=== PATIENT | male | born 1975 | race Caucasian/White ===

== ENCOUNTER 2019-03-22 11:25 | Outpatient (CLI) | payer OTHER, BC ==
--- NOTE | 2019-03-22 11:43 | RAD ---
XR Chest Pa Lat STANDARD HISTORY: Shortness of breath and fatigue COMPARISON: 03/08/2011 FINDINGS: The heart size is normal. The lungs are well expanded without focal areas of consolidation, pneumothorax or pleural effusions. IMPRESSION: No radiographic evidence of acute cardiopulmonary process.
== END 2019-03-22 11:26 | disposition home or self-care (01) ==
LOC: SCSRAD 11:25
PROVIDERS: ATTEND Nurse Practitioner Family
DX: Z00.00 Encounter for general adult medical examination without abnormal findings (principal); R06.02 Shortness of breath; R53.83 Other fatigue
CPT/HCPCS: 36415; 71046; 80053; 80061; 82306; 82607; 82746; 84439; 84443; 84481; 85025; 86038; 86225; 86376; 86800; G0103

== ENCOUNTER 2019-05-11 08:47 | Outpatient (CLI) | payer BC, OTHER ==
--- NOTE | 2019-05-11 10:46 | CT ---
CT CHEST WITH AND WITHOUT CONTRAST: HISTORY: Shortness of breath. COMPARISON: Chest radiograph from 03/22/2019. FINDINGS: On the noncontrast portion of the examination, there is no intramural hematoma. No significant calci fications of the [place] coronary arteries. The lungs are clear. No pneumothorax. No effusion. No consolidation. No fibrosis. No bronchiectasis. No honeycombing. No subpleural articulation. The thyroid is unremarkable. No adenopathy. No pericardial effusion. The upper abdomen is unremark able. No thoracic spine compression deformity. No acute osseous abnormality. No evidence of fracture. IMPRESSION: Normal examination of the chest. POS: [facility]
== END 2019-05-11 08:48 | disposition home or self-care (01) ==
LOC: BICCT 08:47
PROVIDERS: ATTEND Nurse Practitioner Family
DX: E55.9 Vitamin D deficiency, unspecified (principal); I25.10 Atherosclerotic heart disease of native coronary artery without angina pectoris; R53.83 Other fatigue; R06.02 Shortness of breath
CPT/HCPCS: 71260

== ENCOUNTER 2019-05-28 15:00 | Outpatient (CLI) | payer OTHER, BC | END 2019-05-28 15:01 | disposition home or self-care (01) | LOC: SLEEPLAB 15:00 | PROVIDERS: ATTEND Nurse Practitioner Family | DX: G47.33 Obstructive sleep apnea (adult) (pediatric) (principal); R53.83 Other fatigue; K21.9 Gastro-esophageal reflux disease without esophagitis; F41.9 Anxiety disorder, unspecified; F32.9 Major depressive disorder, single episode, unspecified; G47.11 Idiopathic hypersomnia with long sleep time | CPT/HCPCS: 95806 ==

== ENCOUNTER 2021-01-29 13:28 | Outpatient (CLI) | payer OTHER | END 2021-01-29 13:29 | disposition home or self-care (01) | LOC: BICULT 13:28 | PROVIDERS: ATTEND Nurse Practitioner Family | DX: R39.89 Other symptoms and signs involving the genitourinary system (principal); R31.9 Hematuria, unspecified; R80.9 Proteinuria, unspecified | CPT/HCPCS: 76770 ==

== ENCOUNTER 2021-02-20 08:24 | Outpatient (CLI) | payer OTHER ==
[2021-02-20 10:26] LABS: Hemoglobin 14.8 g/dL (13.5-17.5); Mean Corpuscular HGB CONC 33.3 g/dL (32.0-36.0); Mean Corpuscular Hemoglobin 27.9 pg (27.0-33.0); Mean Platelet Volume 9.4 fl (7.4-10.4); Platelet Count 248 10x3/uL (150-450); RBC Distribution Width 11.9 % (11.5-14.5); White Blood Cell (WBC) Count 5.4 10x3/uL (3.5-10.5)
[2021-02-20 10:35] LABS: Anion Gap 13 mmol/L (10-20); BUN (Urea Nitrogen) 22 mg/dL (8.9-20.6); Calc. Creatinine Clearance 0 mL/min (70-130); Calcium 9.2 mg/dL (7.8-10.44); Carbon Dioxide 27 mmol/L (22-29); Chloride 105 mmol/L (98-107); Glucose 98 mg/dL (70-105); Potassium 4.8 mmol/L (3.5-5.1); Sodium 140 mmol/L (136-145)
[2021-02-20 10:44] LABS: PTT 30.5 sec (22.0-33.0); Prothrombin Time 10.7 sec (9.5-12.1)
[2021-02-20 18:34] LABS: SARS-CoV-2 PCR by NAA Not Detected (NotDetected)
== END 2021-02-20 08:25 | disposition home or self-care (01) ==
LOC: LABBT 08:24
PROVIDERS: ATTEND Urology
DX: Z01.812 Encounter for preprocedural laboratory examination (principal); N20.1 Calculus of ureter; Z20.822 Contact with and (suspected) exposure to COVID-19
CPT/HCPCS: 80048; 85027; 85610; 85730; 87635; 93005; 93010; U0003; U0005

== ENCOUNTER 2021-02-25 07:41 | Day surgery (SDC) | payer OTHER ==
[2021-02-24 11:46] VITALS: BMI 34.0
[2021-02-25] MEDS ORDERED: Levofloxacin 500 mg/D5W 100 ml Premix Bag ONE (08:51)
[2021-02-25] MEDS ORDERED: Midazolam HCl 2 mg/2 ml Vial ONE (10:35)
[2021-02-25] MEDS ORDERED: Fentanyl 100 MCG/2 ML VIAL ONE ×2 (10:35→12:26)
[2021-02-25] MEDS ORDERED: Iothalamate Meglumine 60% 50 ML VIAL FS ONE (10:38)
[2021-02-25] MEDS ORDERED: Rocuronium Bromide 10 MG/ML (10ML VIAL) ONE (10:53)
[2021-02-25] MEDS ORDERED: Glycopyrrolate 0.2 MG/ML 5 ML SYRINGE ONE (10:53)
[2021-02-25] MEDS ORDERED: Dexamethasone 20 MG/5 ML VIAL ONE (10:53)
[2021-02-25] MEDS ORDERED: diphenhydrAMINE 50 MG/ML VIAL ONE (10:53)
[2021-02-25] MEDS ORDERED: Ketorolac Tromethamine 30 MG/ML VIAL ONE (10:53)
[2021-02-25] MEDS ORDERED: PROPOFOL 200 MG/20 ML VIAL ONE (10:53)
[2021-02-25] MEDS ORDERED: Ondansetron PF 4 MG/2 ML Vial ONE (10:53)
[2021-02-25] MEDS ORDERED: Oxybutynin 5 MG TAB ONE (12:15)
[2021-02-25] MEDS ORDERED: Phenazopyridine HCl 100 MG TAB ONE ×2 (12:15→12:16)
[2021-03-03 20:08] LABS: CA Oxalate Dihydrate 30 % (.); CA Oxalate Monohydrate 70 % (.); Color Brown (.); Stone Weight 29 mg (.)
== END 2021-02-25 13:37 | disposition home or self-care (01) ==
LOC: SDC 07:41
PROVIDERS: ATTEND Urology
PROC: 0TC78ZZ Extirpation of Matter from Left Ureter, Via Natural or Artificial Opening Endoscopic (ICD-10-PCS; principal; 2021-02-25)
PROC: 0T778DZ Dilation of Left Ureter with Intraluminal Device, Via Natural or Artificial Opening Endoscopic (ICD-10-PCS; principal; 2021-02-25)
DX: N13.2 Hydronephrosis with renal and ureteral calculous obstruction (principal); R35.0 Frequency of micturition; I25.2 Old myocardial infarction; I25.10 Atherosclerotic heart disease of native coronary artery without angina pectoris; Z79.82 Long term (current) use of aspirin; Z79.899 Other long term (current) drug therapy; Z87.891 Personal history of nicotine dependence; Z88.5 Allergy status to narcotic agent
CPT/HCPCS: 74018; 74420; 82365; 88300; J1100; J1200; J1885; J1956; J2250; J2405; J2704; J3010; Q9961